=== PATIENT | female | born 1965 | race Caucasian/White ===

== ENCOUNTER 2017-10-05 11:39 | Emergency (ER) | payer MEDICAID, MEDICARE, OTHER ==
[2017-10-05 12:04] VITALS: BP 119/79
--- NOTE | 2017-10-05 12:42 | UC ---
Complaint Female HPI - HPI Summary HPI Summary: Patient presents to urgent care concerned that she has a yeast infection. Patient has had them in the past and this feels similar. Patient states she's got some burning and itching. Patient states she is recommended on the outside. Pt states she used Monistat [id number] stable mild improvement. Patient with dysuria. No nausea vomiting. No back pain. No concern for sexual transmitted disease. Patient status post hysterectomy. No abdominal pain. Patient eating and drinking normally. She without a history of abnormal Pap smear. Patient states her blood sugars are "monitor "but she is not on metformin or other medication for diabetes. Medications reviewed this visit - History Of Current Complaint Chief Complaint: UCGeneralIllness Stated Complaint: POSSIBLE YEAST INFECTION Time Seen by Provider: 10/05/17 12:34 Hx Obtained From: Patient Hx Last Menstrual Period: every 6 months, 01/16/15 Onset/Duration: Gradual Onset Timing: Lasting Days Severity Initially: Mild Severity Currently: Moderate Pain Intensity: 8 Pain Scale Used: 0-10 Numeric Character: Burning - Allergies/Home Medications Allergies/Adverse Reactions: Allergies Allergy/AdvReac Type Severity Reaction Status Date / Time ciprofloxacin [From Cipro] Allergy Mild Rash Verified 10/05/17 11:51 levofloxacin [From Levaquin] Allergy Mild Rash Verified 10/05/17 11:51 sulfamethoxazole Allergy Mild Rash Verified 10/05/17 11:51 [From Bactrim] trimethoprim [From Bactrim] Allergy Mild Rash Verified 10/05/17 11:51 Home Medications: Home Medications Citalopram TAB* [CeleXA TAB*] 10 mg PO DAILY 10/05/17 [History Confirmed ] Enalapril TAB* [Vasotec TAB*] 5 mg QAM 10/05/17 [History Confirmed 10/05/17] Esomeprazole(NF) [NexIUM(NF)] 40 mg PO DAILY 10/05/17 [History Confirmed ] Naproxen TAB* [Naprosyn 250 mg TAB*] 500 mg BID 10/05/17 [History Confirmed 06/19] busPIRone TAB* [Buspar TAB*] 10 mg BID 10/05/17 [History Confirmed 10/05/17] PMH/Surg Hx/FS Hx/Imm Hx Previously Healthy: Yes - Surgical History Surgical History: Yes Surgery Procedure, Year, and Place: Left TKA, 2012, [place]. Lap Band, 2008, [place] - Family History Known Family History: Positive: Hypertension - Social History Alcohol Use: None Substance Use Type: None Smoking Status (MU): Never Smoked Tobacco Type: eCigarettes - Immunization History Most Recent Tetanus Shot: UTD Review of Systems Genitourinary: Vaginal/Penile Burning, Vaginal/Penile Discharge All Other Systems Reviewed And Are Negative: Yes Physical Exam - Summary Physical Exam Summary: Vital Signs Reviewed: Yes A+Ox3, no distress Eyes: Conjunctiva Clear, WILLIAM. EOM intact and full ENT: Hearing grossly normal TM x 2 clear, mmoist, uvula midline, no exudate, no erythema Neck: Positive: Supple Respiratory: Positive: No respiratory distress, No accessory muscle use + CTA throughout no w/r Cardiovascular: RRR nl s1, s2 no m/r CBT <2 sec abd soft + BS nt/nd no guarding, no distension Pelvic: no lesions, white thicker discharge in vaginal vault, no odor, no lesions, mild erythema throughout vaginal vault no CMT Musculoskeletal Exam: ANDERSON x 4 without difficulty Strength Intact, ROM Intact Neurological: Positive: Alert, + sensation throughout Psychological: Positive: Normal Response To Family Skin: Positive: no rash, no ecchymosis Triage Information Reviewed: Yes Vital Signs: Initial Vital Signs Temp 97.7 F 10/05/17 11:58 Pulse 85 10/05/17 11:58 Resp 18 10/05/17 11:58 BP 119/79 10/05/17 11:58 Pulse Ox 100 10/05/17 11:58 Complaint Female Dx - Course Course Of Treatment: Patient presents with concerns for vaginal candidiasis. Patient is a previously. Patient was symptoms for 3 days. Patient states she is mostly Brenda helped. Patient with burning and itching. On exam patient with thick white discharge in the vaginal vault. Mild diffuse erythema. No edema. No discrete lesions. No cervical motion tenderness. Of her taken to check for Nivia. We'll give patient dose of Diflucan. We'll write for refill as needed. Patient comfortable in agreement with plan. Return precautions discussed - Differential Dx/Diagnosis Provider Diagnoses: vaginitis Discharge - Sign-Out/Discharge Documenting (check all that apply): Patient Departure - Discharge Plan Condition: Stable Disposition: HOME Prescriptions: Fluconazole [Diflucan 150 MG (NF)] 150 mg PO ONCE PRN #1 tab PRN Reason: vaginal yeast infection Patient Education Materials: Yeast Infection (ED), Vaginitis (ED) Referrals: Laurel Keller NP [Primary Care Provider] - Additional Instructions: - Take medication as prescribed for vaginal yeast infection - Stay well hydrated - avoid excess caffeine and alcohol - avoid inserting anything in your vaginal or using vaginal douche until your infection has cleared - contact your doctor or return with questions or concerns - Billing Disposition and Condition Condition: STABLE Disposition: Home
== END 2017-10-05 12:57 | disposition home or self-care (01) ==
LOC: UCCORT 11:39
DX: N76.0 Acute vaginitis (principal); Z88.1 Allergy status to other antibiotic agents
CPT/HCPCS: 81003; 87086; 87480; 87510; 99212; G0463